=== PATIENT | female | born 1955 | race African-American/Black ===

== ENCOUNTER → 2020-02-21 | Day surgery (SDC) | payer SELFPAY ==
[2020-02-18 12:48] LABS: BASOPHILS % 0.5 % (0.0-1.0); EOSINOPHILS # (AUTO) 0.4 (0.0-0.4); EOSINOPHILS % 5.4 % (0.0-6.0); HEMATOCRIT 37.7 % (34.2-44.1); HEMOGLOBIN 11.5 g/dL (12.0-16.0); LYMPHOCYTES # (AUTO) 2.8 (1.0-3.2); LYMPHOCYTES % 35.5 % (18.0-39.1); MEAN CORPUSCULAR HGB CONC 30.5 g/dL (31-35); MEAN CORPUSCULAR VOLUME 85.3 fL (81-99); MONOCYTES # (AUTO) 0.6 (0.2-0.8); MONOCYTES % 7.1 % (4.4-11.3); NEUTROPHILS % 51.2 % (38.7-80.0); PLATELET COUNT 316 x10e3/uL (140-360); RED BLOOD COUNT 4.42 x10e6/uL (3.6-5.1); RED CELL DISTRIBUTION WIDTH 15.9 % (11.7-14.4)
[2020-02-18 13:11] LABS: ALANINE AMINOTRANSFERASE 17 IU/L (0-55); ALBUMIN 3.3 g/dL (3.5-5.0); ALBUMIN/GLOBULIN RATIO 1.1 (0.8-2.0); ALKALINE PHOSPHATASE 57 IU/L (40-150); ANION GAP 12.4 mmol/L (8-16); BLOOD UREA NITROGEN 22 mg/dL (7-26); BUN/CREATININE RATIO 33 (6-25); CALCIUM 9.3 mg/dL (8.4-10.2); CARBON DIOXIDE 27 mmol/L (22-29); CHLORIDE 109 mmol/L (98-107); CREATININE, SERUM 0.66 mg/dL (0.57-1.11); EST GLOMERULAR FILTRATION RATE > 60 ML/MIN (60-); GLUCOSE 100 mg/dL (74-118); POTASSIUM 4.4 mmol/L (3.5-5.1); SODIUM 144 mmol/L (136-145)
--- NOTE | 2020-02-18 13:22 | Diagnostic Imaging Report ---
EXAMINATION: CHEST 2 VIEWS INDICATION: Preop for gallstones ^PRE OP COMPARISON: None FINDINGS: TUBES and LINES: None. LUNGS: Lungs are well inflated. Mild chronic appearing changes in the lungs.. There is no evidence of pneumonia or pulmonary edema. PLEURA: No pleural effusion or pneumothorax. HEART AND MEDIASTINUM: Tortuous thoracic aorta. The cardiomediastinal silhouette is otherwise unremarkable. BONES AND SOFT TISSUES: No acute osseous lesion. Soft tissues are unremarkable. UPPER ABDOMEN: No free air under the diaphragm. IMPRESSION: No acute thoracic abnormality. Signed by: Dr. Sahil Fuentes M.D. on 02/18/2020 1:19 PM
[~2020-02-21] MED LIST: ACETAMINOPHEN/CODEINE 300MG - 30MG TAB ONE; BUPIVACAINE 0.25% 30ML SDV INJ ONE; CEFAZOLIN SOD 1 GM VIAL ONE; DEXAMETHASONE SOD PHOS INJ 4 MG/ML VIAL ONE; FENTANYL CITRATE/PF 100MCG/2 ML INJ ONE; HYDROGEN PEROXIDE 120 ML BTL ONE; KETOROLAC TROMETHAMINE 30 MG/ML VIAL ONE; LIDOCAINE 1% W/EPINEPHRINE 20 ML VIAL ONE; LIDOCAINE HCL 2% LOCAL INJ 5 ML SDV VIAL INJ ONE; LISINOPRIL/HCTZ; METFORMIN HCL500 MG PO; METOCLOPRAMIDE HCL 10 MG/2ML VIAL ONE; ONDANSETRON HCL INJ 2MG/ML 2ML 2 MG/ML VIAL ONE; PROPOFOL IV EMULSION 10 MG/ML 20 ML VIAL ONE; ROCURONIUM BROMIDE 10 MG/ML 5ML VIAL IV ONE; SEVOFLURANE INHAL SOLN 250 ML PEN BTL ONE; ZETIA10 MG PO; ZYRTEC10 M3
[2020-02-21 14:00] VITALS: BP 129/76
--- NOTE | 2020-02-22 02:36 | Operative Report ---
DATE OF PROCEDURE: 02/21/2020 SURGEON: Mainor Tello MD PREOPERATIVE DIAGNOSIS: Cholelithiasis, chronic cholecystitis, morbid obesity, diabetes. POSTOPERATIVE DIAGNOSIS: Cholelithiasis, chronic cholecystitis, morbid obesity, diabetes. PROCEDURE PERFORMED: Laparoscopic cholecystectomy. ANESTHESIA: General endotracheal. ESTIMATED BLOOD LOSS: Minimal. DRAINS: None. COMPLICATIONS: None. INDICATION AND FINDINGS: The patient is a morbidly obese diabetic female admitted for cholecystectomy. She was diagnosed with cholelithiasis during a visit to the emergency room because of right upper quadrant pain after eating pizza. INTRAOPERATIVE FINDINGS: The patient had a long gallbladder that contained multiple large stones. There was no ductal dilatation. DESCRIPTION OF PROCEDURE: With the patient lying on the operative table in the supine position after administration of general anesthesia, she was prepped and draped for laparoscopic cholecystectomy. The procedure was begun by establishing the pneumoperitoneum in the right upper quadrant midclavicular line because of previous pelvic surgery. After we insufflated the pneumoperitoneum to 15 mm of pressure in the right upper quadrant midclavicular line, we introduced the camera and there were some midline adhesions in the area of the umbilicus from the previous pelvic surgery and then we placed a periumbilical 10/11 trocar to the right of the umbilicus away from the adhesions in an area that was free of any adhesions and bowel and was seen 360 degrees circumferentially. After we placed periumbilical trocar under direct vision with the camera placed, a 10 mm subxiphoid port and finally right anterior axillary line trocar. The gallbladder was identified. It was difficult to grasp because she had a large stone in the neck of the gallbladder. Multiple other stones and it was very long with a thickened gallbladder wall consistent with chronic cholecystitis. We then mobilized the gallbladder, grasped with two 5 mm trocars laterally and placed one trocar in the fundus and then the other one in the neck of the gallbladder above where there was a large stone impacted. We had to put a 5th trocar to expose the operative field. We began the dissection exposing the cystic duct high in the neck of the gallbladder as well as the cystic artery and exposing also a plate of the liver at this point. Then, we transected the cystic duct between titanium clips as well as the cystic artery and then we took the gallbladder down using a combination of electrocautery dissection, traction and countertraction hydrodissection until we detached the gallbladder. We placed the gallbladder in an endobag and removed it through the umbilical port because of the periumbilical port. Because of the large size of the stones, we had to enlarge the opening significantly to be able to extract the stones that were too large to be crossed. After we did that, we reinstituted the pneumoperitoneum and inspected the operative field and there was no bleeding. No bowel injury. The operative field appeared to be dry. We did place the Surgicel in the area of the gallbladder bed fossa and then released the pneumoperitoneum. We closed the periumbilical port site with five 1 Vicryl stitches. We copiously irrigated the operative field in that port site and then closed the subcutaneous tissue with 2-0 plain catgut. The skin in the periumbilical port site was closed using a combination of 2-0 silk and nenita. The skin of all the ports was closed with nenita. 0.25% plain Marcaine with 1% Xylocaine with epinephrine was given as a local block at the port sites for pain control. Sterile dressing was applied. The patient tolerated the procedure well, was taken to recovery room in stable condition. The sponge and instrument counts were pronounced correct. At the end of the procedure, I went to the relative's waiting room and no one was waiting for her. She will be given detailed instruction prior to discharge. MD МАРИЯ Burgre/HEBER /[id number]
== END | disposition home or self-care (01) ==
LOC: OR 06:25
PROVIDERS: ATTEND Surgery
DX: K80.10 Calculus of gallbladder with chronic cholecystitis without obstruction (principal); E66.01 Morbid (severe) obesity due to excess calories; E11.9 Type 2 diabetes mellitus without complications; R00.1 Bradycardia, unspecified; J45.909 Unspecified asthma, uncomplicated; I10 Essential (primary) hypertension; E78.00 Pure hypercholesterolemia, unspecified; E78.5 Hyperlipidemia, unspecified; I83.90 Asymptomatic varicose veins of unspecified lower extremity; Z01.810 Encounter for preprocedural cardiovascular examination; Z01.812 Encounter for preprocedural laboratory examination; Z01.818 Encounter for other preprocedural examination; Z11.59 Encounter for screening for other viral diseases; Z68.38 Body mass index [BMI] 38.0-38.9, adult
CPT/HCPCS: 36415 ×2; 47562; 71046; 80053; 82948; 85025; 88304; 93005; C1766; J0690; J1100; J1885; J2001; J2405; J2704; J2765; J3010; U0002

== ENCOUNTER 2023-05-10 07:06 | Observation (INO) | payer MEDICARE ==
[2023-05-09 14:09] LABS: BASOPHILS % 0.3 % (0.0-1.0); EOSINOPHILS # (AUTO) 0.3 (0.0-0.4); EOSINOPHILS % 4.7 % (0.0-6.0); HEMATOCRIT 38.8 % (34.2-44.1); HEMOGLOBIN 11.6 g/dL (12.0-16.0); LYMPHOCYTES % 31.8 % (18.0-39.1); MEAN CORPUSCULAR HEMOGLOBIN 26.4 pg (28-32); MEAN CORPUSCULAR HGB CONC 29.9 g/dL (31-35); MEAN CORPUSCULAR VOLUME 88.2 fL (81-99); MONOCYTES # (AUTO) 0.4 (0.2-0.8); MONOCYTES % 6.4 % (4.4-11.3); NEUTROPHILS # (AUTO) 3.6 (2.1-6.9); NEUTROPHILS % 56.6 % (38.7-80.0); PLATELET COUNT 287 x10e3/uL (140-360); WHITE BLOOD COUNT 6.39 x10e3/uL (4.8-10.8)
[2023-05-09 15:21] LABS: CALCIUM 9.6 mg/dL (8.4-10.2); CREATININE, SERUM 0.68 mg/dL (0.57-1.11)
[~2023-05-10 07:06] MED LIST changes: -ACETAMINOPHEN/CODEINE 300MG - 30MG TAB ONE; +BC POWDER PACK1 EAC1 PO; -BUPIVACAINE 0.25% 30ML SDV INJ ONE; -CEFAZOLIN SOD 1 GM VIAL ONE; -DEXAMETHASONE SOD PHOS INJ 4 MG/ML VIAL ONE; -FENTANYL CITRATE/PF 100MCG/2 ML INJ ONE; -HYDROGEN PEROXIDE 120 ML BTL ONE; -KETOROLAC TROMETHAMINE 30 MG/ML VIAL ONE; -LIDOCAINE 1% W/EPINEPHRINE 20 ML VIAL ONE; -LIDOCAINE HCL 2% LOCAL INJ 5 ML SDV VIAL INJ ONE; -METOCLOPRAMIDE HCL 10 MG/2ML VIAL ONE; +OLMESARTAN-HCT1 EAC1 PO; -ONDANSETRON HCL INJ 2MG/ML 2ML 2 MG/ML VIAL ONE; +OXYBUTYNIN CHLOR5 MG PO; +PHENTERMINE H37.5 M1 PO; -PROPOFOL IV EMULSION 10 MG/ML 20 ML VIAL ONE; +PROVENTIL HFA6.7 GM INH; -ROCURONIUM BROMIDE 10 MG/ML 5ML VIAL IV ONE; -SEVOFLURANE INHAL SOLN 250 ML PEN BTL ONE; +VITAMIN D3 MA125 MCG PO
[2023-05-10] MEDS ORDERED: Vancomycin IV 1,000 MG ONE (07:09)
[2023-05-10] MEDS ORDERED: SODIUM CHLORIDE 0.9% 500ML 500 ML ONE (07:09)
[2023-05-10] MEDS ORDERED: TRANEXAMIC ACID 20 ML ONE (07:09)
[2023-05-10] MEDS ORDERED: CELECOXIB 200 MG CAP ONE (07:52)
[2023-05-10] MEDS ORDERED: CEFAZOLIN SODIUM 2 GM ONE (07:52)
[2023-05-10] MEDS ORDERED: GABAPENTIN 300 MG CAP ONE (07:52)
[2023-05-10] MEDS ORDERED: LACTATED RINGER'S 1,000 ML ONE (07:52)
[2023-05-10] MEDS ORDERED: DEXAMETHASONE SOD PHOS 10 MG/1 ML VIAL ONE (07:52)
[2023-05-10] MEDS ORDERED: ROPIVACAINE 246.25 MG, EPINEPHRINE HCL 1:1000 1ML 0.5 MG, CLONIDINE HCL 0.08 MG, KETORO... INJ ONE ×5 (08:00)
[2023-05-10] MEDS ORDERED: DOCUSATE SODIUM 100 MG CAP PO PRN (11:30)
[2023-05-10] MEDS ORDERED: HYDROCODONE/APAP 5MG-325MG TAB PO PRN (11:30)
[2023-05-10] MEDS ORDERED: HYDROCODONE/APAP 7.5MG-325MG 1 EA TAB PO PRN (11:30)
[2023-05-10] MEDS ORDERED: ONDANSETRON HCL INJ 2MG/ML 2ML 2 MG/ML VIAL IV PRN (11:30)
[2023-05-10] MEDS ORDERED: DIPHENHYDRAMINE HCL INJ 50 MG/ML VIAL IV PRN (11:30)
[2023-05-10] MEDS ORDERED: SODIUM CHLORIDE 0.9% 1000ML 1,000 ML IV SCH (11:30)
[2023-05-10] MEDS ORDERED: ACETAMINOPHEN 1000 MG/100 ML 100 ML IV ONE (11:42)
[2023-05-10] MEDS ORDERED: SEVOFLURANE INHAL SOLN 250 ML PEN BTL ONE (11:52)
[2023-05-10] MEDS ORDERED: DEXAMETHASONE SOD PHOS INJ 4 MG/ML SDV ONE (11:52)
[2023-05-10] MEDS ORDERED: ESMOLOL HCL 100MG/10ML 10 MG/ML VIAL ONE (11:52)
[2023-05-10] MEDS ORDERED: PROPOFOL IV EMULSION 10 MG/ML 20 ML VIAL ONE (11:52)
[2023-05-10] MEDS ORDERED: LIDOCAINE HCL 2% LOCAL INJ 5 ML SDV VIAL INJ ONE (11:52)
[2023-05-10] MEDS ORDERED: ONDANSETRON HCL INJ 2MG/ML 2ML 2 MG/ML VIAL ONE ×2 (11:52→14:39)
[2023-05-10] MEDS ORDERED: FENTANYL CITRATE/PF 100MCG/2 ML INJ ONE ×2 (12:08→12:09)
[2023-05-10] MEDS ORDERED: MIDAZOLAM HCL 2 MG/2 ML VIAL ONE (12:09)
[2023-05-10] MEDS ORDERED: HYDROCODONE/APAP 5MG-325MG TAB ONE (12:55)
[2023-05-10 15:05] VITALS: BP 159/87; PULSE 86; RESP 17; O2SAT 98
[2023-05-10] MEDS ORDERED: ASPIRIN81 MG PO (15:06)
[2023-05-10] MEDS ORDERED: ASPIRIN 325 MG TAB PO SCH (17:00)
[2023-05-10] MEDS ORDERED: CELECOXIB 100 MG CAP PO SCH (17:00)
[2023-05-11] MEDS ORDERED: ACETAMINOPHEN 1000 MG/100 ML IV PRN (11:30)
== END 2023-05-10 15:31 | disposition home health service (06) ==
LOC: OR 07:06 → PACU V 11:22
PROVIDERS: ADMIT Specialist; ATTEND Specialist
DX: M17.12 Unilateral primary osteoarthritis, left knee (principal); Z96.651 Presence of right artificial knee joint; I10 Essential (primary) hypertension; E78.5 Hyperlipidemia, unspecified; E66.9 Obesity, unspecified; Z68.35 Body mass index [BMI] 35.0-35.9, adult; E11.9 Type 2 diabetes mellitus without complications; J45.909 Unspecified asthma, uncomplicated; G47.33 Obstructive sleep apnea (adult) (pediatric); I83.90 Asymptomatic varicose veins of unspecified lower extremity; Z01.812 Encounter for preprocedural laboratory examination; Z01.818 Encounter for other preprocedural examination; Z79.899 Other long term (current) drug therapy; Z79.82 Long term (current) use of aspirin
CPT/HCPCS: 27447; 36415; 71046; 73560; 80048; 85025; 86850; 86900; 97116 ×2; 97162; 97530; C1713 ×2; C1776 ×3; G0378; J0131; J0171; J0690; J1100 ×2; J1885; J2001; J2250; J2405; J2704; J2795; J3010; J3370; J7040; J7121